=== PATIENT | male | born 1950 | race Caucasian/White ===

== ENCOUNTER 2019-11-05 08:05 | Outpatient (CLI) | payer MEDICARE, MEDICAID, SELFPAY ==
--- NOTE | ~2019-11-05 | CT_ITS ---
EXAMINATION: CT chest w con EXAM DATE: 11/05/2019 09:07 INDICATION: Left upper lobe lung cancer. TECHNIQUE: Spiral CT of the chest following intravenous injection of 75 mL Omnipaque 350. Axial, cor onal and sagittal images were reviewed. Coronal maximum intensity pixel images of chest reviewed. Mohsen [place]ford dose-length product (DLP) for this examination was 344.22 mGy-cm. The exposure was tailored accor ding to patient size (auto mA exposure control), and iterative reconstruction (ASIR) was used as elvin tional dose reduction technique. Comparison is made to prior examination from 08/04/2019. FINDINGS: There is left upper lobe scarring/treated mass unchanged. There is paramedian fibrosis pro bably treatment related. Lingular nodule measures 1.4 cm, stable right upper lobe small spiculated re gion is also stable. There is moderate emphysema and some hyperinflation. Small to moderate-sized pe ricardial effusion unchanged. Tracheobronchial tree is patent. Again there is prevascular lymphade nopathy, today measuring 3.5 x 2.5 cm (was 3.2 x 2.1 cm). Other mediastinal and hilar lymph nodes are smaller. There is no pneumothorax. Heart normal in size. There is moderate coronary arterial ca lcification, arterial sclerosis. Right renal superior pole cyst measuring 4.3 cm. No central pulmona ry emboli. There is thoracic spondylosis without osteoblastic or osteolytic lesions identified. IMPRESSION: 1. Mild interval increase in prevascular necrotic lymphadenopathy. 2. Stable treated left upper lobe mass/scarring, lingular nodule and right apical spiculation. 3. Moderate emphysema. Reviewed, dictated and finalized at location A. 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 Mild interval increase in prevascular necrotic lymphadenopathy. 2. Stable treated left upper lobe mass/scarring, lingular nodule and right api basil spiculation. 3. Moderate emphysema.
== END 2019-11-05 08:06 | disposition home or self-care (01) ==
LOC: ANHIMG 08:08
PROVIDERS: Visit Provider Internal Medicine Hematology & Oncology
DX: C34.12 Malignant neoplasm of upper lobe, left bronchus or lung (principal); J43.9 Emphysema, unspecified
CPT/HCPCS: 71260; Q9967

== ENCOUNTER 2020-01-28 10:07 | Outpatient (CLI) | payer MEDICARE, OTHER, MEDICAID, SELFPAY ==
--- NOTE | ~2020-01-28 | CT_ITS ---
EXAMINATION:CT chest w con DATE: 01/28/2020 11:01 INDICATION: Malignant neoplasm of the upper lobe of left lung. TECHNIQUE: Computed tomography (CT) of the chest was performed with 75 mL Omnipaque 350 intravenous c ontrast. Automated exposure control and iterative reconstruction technique were employed. The dose-le ngth product (DLP) was 201.07 mGy-cm. COMPARISON: Chest CT 11/05/2019, PET/CT 05/20/2018 FINDINGS: There is moderate emphysema. There is mild atelectasis in right lower lobe. There is a 10 m m nodule in right upper lobe without change. There is a 2.9 x 0.9 cm nodule in left upper lobe withou t change. There is architectural distortion in the upper lobes with bronchiectasis and left paramedia stinal airspace opacities, likely radiation pneumonitis. There is a 1.5 cm nodule in lingula without change. Again seen is pleural thickening at left lung apex that may be changes of radiation therapy. No pleural effusion. There is lymphadenopathy in the aorticopulmonary window, right paratracheal nick n, and anterior mediastinum without change. For example, a briseyda mass in the anterior mediastinum rolanda sures 3.7 x 2.9 cm that previously measured 3.6 x 2.7 cm. Calcified right hilar and mediastinal lymph nodes are consistent with old granulomatous disease. The heart size is normal. Again seen is a small pericardial effusion, likely secondary to radiation therapy. Calcifications in the spleen are consis tent with old granulomatous disease. Partially visualized is a cyst in right kidney measuring at leas t 4.3 cm. There is a right internal jugular port with tip in right atrium. There is moderate thoracic spondylosis. Thoracic levoscoliosis is noted. IMPRESSION: 1. Stable pulmonary nodules and mediastinal lymphadenopathy, consistent with metastatic disease. 2. Moderate emphysema. Reviewed, dictated and finalized at location A. IMPRESSION: 1. Stable pulmonary nodules and mediastinal lymphadenopathy, consistent with me tastatic disease. 2. Moderate emphysema.
== END 2020-01-28 10:08 | disposition home or self-care (01) ==
LOC: ANHIMG 10:15
PROVIDERS: PCP Internal Medicine; Visit Provider Internal Medicine Hematology & Oncology
DX: C34.12 Malignant neoplasm of upper lobe, left bronchus or lung (principal)
CPT/HCPCS: 71260; Q9967

== ENCOUNTER 2020-03-18 08:46 | Outpatient (CLI) | payer MEDICARE, MEDICAID, SELFPAY ==
--- NOTE | ~2020-03-18 | MR_ITS ---
EXAMINATION: MR brain/brain stem wo/w con DATE: 03/18/2020 10:15 INDICATION: Secondary malignant neoplasm of brain. TECHNIQUE: Magnetic resonance imaging (MRI) of the brain and brainstem was performed without and with 14 mL MultiHance intravenous contrast. Sequences included sagittal and axial T1-weighted FSE, axial diffusion-weighted FS EPI, axial T2*-weighted GRE, axial T2-weighted FLAIR Propeller, and axial T2-we ighted Propeller. Postcontrast sequences included axial, sagittal, and coronal T1-weighted FSE. Appar ent diffusion coefficient (ADC) maps were created. COMPARISON: Brain MRI 10/13/2019 FINDINGS: There are scattered areas of nonspecific increased T2-weighted signal intensity in the cere bral white matter, which is within normal limits for the patient's age. There is no intracranial hemo rrhage, acute infarction, or abnormal intracranial mass lesion. The ventricles are normal in size. Th e orbits are normal. There is mucosal thickening in the paranasal sinuses. There are bilateral mastoi d effusions. IMPRESSION: 1. No evidence of metastatic disease. Reviewed, dictated and finalized at location A.
== END 2020-03-18 08:47 | disposition home or self-care (01) ==
LOC: ANHIMG 08:49
PROVIDERS: PCP Internal Medicine; Visit Provider Radiology Radiation Oncology
DX: C79.31 Secondary malignant neoplasm of brain (principal)
CPT/HCPCS: 70553; A9577

== ENCOUNTER 2020-04-12 09:12 | Outpatient (CLI) | payer MEDICARE, MEDICAID, SELFPAY ==
--- NOTE | ~2020-04-12 | CT_ITS ---
EXAMINATION:CT chest w con DATE: 04/12/2020 09:49 INDICATION: Malignant neoplasm of upper lobe at left lung. TECHNIQUE: Computed tomography (CT) of the chest was performed with 75 mL Omnipaque 350 intravenous c ontrast. Automated exposure control and iterative reconstruction technique were employed. The dose-le ngth product (DLP) was 213.00 mGy-cm. COMPARISON: Chest CT 01/28/2020, PET/CT 05/28/2018 FINDINGS: There is moderate emphysema. There is mild atelectasis bilaterally. There are scattered are as of scarring in the lungs. There is paramediastinal radiation fibrosis in left upper lobe and left lower lobe. There is a 10 mm nodule in right upper lobe without change. There is a 2.9 x 0.9 cm nodul e in left upper lobe without change. There is a 1.5 cm nodule in lingula without change. A calcified right lung nodule and calcified right hilar and mediastinal lymph nodes are consistent with old granu lomatous disease. And seen is pleural thickening at lung lung apex that may be changes of radiation t herapy. There are small pleural effusions. Again seen is mediastinal lymphadenopathy. The largest nod al mass in the anterior mediastinum measures 3.4 x 3.1 cm, stable from 3.5 x 3.2 cm. The heart size i s normal. There are coronary artery calcifications. There is a small pericardial effusion. There is a right internal jugular port with tip in right atrium. Calcifications in the liver and spleen are con sistent with old granulomatous disease. Partially visualized is a cyst in right kidney measuring at l east 4.2 cm. There is mild thoracic spondylosis. IMPRESSION: 1. Stable pulmonary nodules and mediastinal lymphadenopathy, consistent with metastatic disease. 2. Moderate emphysema. Reviewed, dictated and finalized at location A. IMPRESSION: 1. Stable pulmonary nodules and mediastinal lymphadenopathy, consistent with me tastatic disease. 2. Moderate emphysema.
== END 2020-04-12 09:13 | disposition home or self-care (01) ==
LOC: ANHIMG 09:16
PROVIDERS: PCP Internal Medicine; Visit Provider Internal Medicine Hematology & Oncology
DX: C34.12 Malignant neoplasm of upper lobe, left bronchus or lung (principal); J43.9 Emphysema, unspecified; R91.8 Other nonspecific abnormal finding of lung field
CPT/HCPCS: 71260; Q9967

== ENCOUNTER 2020-06-23 12:36 | Outpatient (CLI) | payer MEDICARE, MEDICAID, SELFPAY ==
--- NOTE | ~2020-06-23 | CT_ITS ---
EXAMINATION: CT chest abdomen pelvis w con DATE: 06/23/2020 14:38 INDICATION: Left lung cancer TECHNIQUE: Transaxial computed tomographic images of the chest, abdomen, and pelvis were obtained aft er the administration of 100 cc of Omnipaque 350 intravenous contrast. The dose-length product (DLP) was 517.26 mGy-cm. Automated exposure control and iterative reconstruction technique were employed. COMPARISON: 04/12/2020 FINDINGS: CHEST CT: There is moderate emphysema. Small pleural effusions have slightly increased in size. There is a stab le 1.5 cm nodule of the lingula. There is a stable 2.8 x 1.0 cm nodule of the left lung apex. Also se en is a stable 1.1 x 0.6 cm nodule of the right lung apex. No new pulmonary nodules are identified. T here is no pneumothorax. A small pericardial effusion is stable. Radiation fibrosis is noted in the p aramediastinal aspect of the left upper lobe. Mediastinal lymphadenopathy persists. There is slight w orsening of the largest briseyda mass which is seen in the anterior mediastinum and measures 3.9 x 3.0 c m, previously 3.4 x 3.1 cm. The heart size is normal. A right internal jugular Port-A-Cath ends with its tip in the right atrium. There is mild thoracic spondylosis. ABDOMEN/PELVIS CT: Punctate calcifications in an otherwise normal spleen likely represent healed granulomatous disease. The liver, pancreas, gallbladder, and adrenal glands are normal. There is a 3 mm nonobstructing stone of the left kidney. A 4.5 cm cyst is noted in the right kidney. No pathologically enlarged abdominal or pelvic lymph nodes are identified. There is calcified atherosclerosis of the aorta and many of th e other arteries. There is no free intraperitoneal gas or evidence of bowel obstruction. A moderate v olume of colonic stool is present. There is severe lumbar spondylosis. IMPRESSION: 1. Stable pulmonary nodules in the mediastinal lymphadenopathy with slight enlargement of a briseyda mas s in the anterior mediastinum, consistent with metastatic disease. 2. Small pleural effusions with slight increase in size. 3. Small pericardial effusion. 4. Nonobstructing left nephrolithiasis. Reviewed, dictated and finalized at location A. IMPRESSION: 1. Stable pulmonary nodules in the mediastinal lymphadenopathy with slight enla rgement of a briseyda mass in the anterior mediastinum, consistent with metastatic disease. 2. Small pleural effusions with slight increase in size. 3. Small pericardial effusion. 4. Nonobstructing left nephrolithiasis.
--- NOTE | ~2020-06-23 | MR_ITS ---
EXAMINATION: MR brain/brain stem wo/w con DATE: 06/23/2020 14:21 INDICATION: Left lung cancer. TECHNIQUE: Magnetic resonance imaging (MRI) of the brain and brainstem was performed without and with 13 mL MultiHance intravenous contrast. Sequences included sagittal and axial T1-weighted FSE, axial diffusion-weighted FS EPI, axial T2*-weighted GRE, axial T2-weighted FLAIR Propeller, and axial T2-we ighted Propeller. Postcontrast sequences included axial, sagittal, and coronal T1-weighted FSE. Appar ent diffusion coefficient (ADC) maps were created. COMPARISON: Brain MRI 03/18/2020 FINDINGS: There are scattered areas of nonspecific increased T2-weighted signal intensity in the cere bral white matter, which is within normal limits for the patient's age. There is no intracranial hemo rrhage, acute infarction, or abnormal intracranial mass lesion. The ventricles are normal in size. Th ere is mucosal thickening in the paranasal sinuses. The orbits are normal. There are bilateral mastoi d effusions, left worse than right. IMPRESSION: 1. No evidence of metastatic disease. Reviewed, dictated and finalized at location A.
== END 2020-06-23 12:37 | disposition home or self-care (01) ==
PROVIDERS: PCP Internal Medicine; Visit Provider Internal Medicine Hematology & Oncology
DX: C34.12 Malignant neoplasm of upper lobe, left bronchus or lung (principal); N20.0 Calculus of kidney; I31.3 Pericardial effusion (noninflammatory); J90 Pleural effusion, not elsewhere classified; R91.8 Other nonspecific abnormal finding of lung field
CPT/HCPCS: 70553; 71260; 74177; A9577; Q9967